=== PATIENT | female | born 1940 | race Caucasian/White ===

== ENCOUNTER → 2017-08-24 | Outpatient (CLI) | payer OTHER, MEDICAID | LOC: BHFA 13:30 | PROVIDERS: ATTEND Internal Medicine Cardiovascular Disease | DX: I77.9 Disorder of arteries and arterioles, unspecified (principal); I50.32 Chronic diastolic (congestive) heart failure; I73.9 Peripheral vascular disease, unspecified; F41.9 Anxiety disorder, unspecified ==

== ENCOUNTER → 2017-09-11 | Outpatient (CLI) | payer OTHER, MEDICAID | LOC: BHFA 13:30 | PROVIDERS: ATTEND Internal Medicine Cardiovascular Disease | DX: I25.10 Atherosclerotic heart disease of native coronary artery without angina pectoris (principal) | CPT/HCPCS: 78452; 93017; A9500; J2785 ==

== ENCOUNTER 2017-11-06 08:31 | Day surgery (SDC) | payer OTHER, MEDICAID ==
[2017-11-06] MEDS ORDERED: TEMAZEPAM 15 MG CAP PO PRN (08:42)
[2017-11-06] MEDS ORDERED: ACETAMINOPHEN 325 MG TAB PO PRN (08:42)
[2017-11-06] MEDS ORDERED: NITROGLYCERIN 0.4 MG BTL SL PRN (08:42)
[2017-11-06] MEDS ORDERED: NS 1,000 ML IV SCH (08:42)
[2017-11-06] MEDS ORDERED: diphenhydrAMINE 25 MG CAP PO ONE (08:42)
[2017-11-06] MEDS ORDERED: ASPIRIN EC 325 MG TAB PO ONE (08:42)
[2017-11-06] MEDS ORDERED: DIAZEPAM 5 MG TAB PO ONE (08:42)
[2017-11-06] MEDS ORDERED: FAMOTIDINE 20 MG TAB PO ONE (08:42)
[2017-11-06 09:33] LABS: PLATELET COUNT 382 10^3/uL (150-400)
[2017-11-06 09:39] LABS: INR 0.97 (0.83-1.16); PROTIME(PATIENT) 13.1 SEC (12.0-15.0)
--- NOTE | 2017-11-06 10:09 | CPEKG ---
Test Reason : OPEN Blood Pressure : / mmHG Vent. Rate : 060 BPM Atrial Rate : 060 BPM P-R Int : 163 ms QRS Dur : 081 ms QT Int : 441 ms P-R-T Axes : 054 021 094 degrees QTc Int : 441 ms Sinus rhythm Borderline T wave abnormalities Confirmed by Geovanni Rodriguez ([id number]) on 11/06/2017 10:08:22 AM Referred By: Confirmed By:Geovanni Rodriguez
[2017-11-06 10:29] VITALS: BP 140/62
--- NOTE | 2017-11-06 10:59 | PDPROPOC ---
Sedation Plan of Care Sedation Plan of Care: mental status noted, patient educated of risks, benefits , alternatives, patient can tolerate sedation ASA Classification: ASA 2 Planned drugs: fentanyl, midazolam Mallampati Score: Class 2 Mallampati Reference Image: Patient passed 3-3-2 rule?: Yes
--- NOTE | 2017-11-06 11:00 | PDHPUP ---
History & Physical Update H&P update statement: This history and physical update is based on an assessment of the patient which was completed after admission or registration (within 24 hours), but prior to the surgery/procedure. H&P update: H&P reviewed & patient examined, no change in patient's condition since H&P completed
[2017-11-06] MEDS ORDERED: MIDAZOLAM 2 MG/2 ML VIAL ONE (11:02)
[2017-11-06] MEDS ORDERED: LIDOCAINE 1% 300 MG/30 ML SDV ONE (11:02)
[2017-11-06] MEDS ORDERED: fentaNYL 100 MCG/2 ML INJ ONE (11:02)
[2017-11-06] MEDS ORDERED: IOPAMIDOL (ISOVUE-370) 150 ML BTL IV ONE ×2 (11:03→12:29)
--- NOTE | 2017-11-06 11:27 | PDANEPAE ---
ANE History of Present Illness cath l&r and carotid angiography ANE Past Medical History - Cardiovascular History Hx Hypertension: Yes Hx Arrhythmias: Yes Hx Chest Pain: No Hx Coronary Artery / Peripheral Vascular Disease: Yes Hx CHF / Valvular Disease: Yes Hx Palpitations: Yes Cardiovascular History Comment: heart stents; - Pulmonary History Hx COPD: No Hx Asthma/Reactive Airway Disease: No Hx Recent Upper Respiratory Infection: Yes Hx Oxygen in Use at Home: No Hx Sleep Apnea: No Sleep Apnea Screening Result - Last Documented: Negative Pulmonary History Comment: current bronchitis; "some kind of unknown lung disease"; SOB - Neurologic History Hx Cerebrovascular Accident: No Hx Seizures: No Hx Dementia: No - Endocrine History Hx Diabetes: No - Renal History Hx Renal Disorders: No - Liver History Hx Hepatic Disorders: No - Neurological & Psychiatric Hx Hx Neurological and Psychiatric Disorders: No - Cancer History Hx Cancer: No - Congenital Disorder History Hx Congenital Disorders: No - GI History Hx Gastrointestinal Disorders: No Gastrointestinal History Comment: hiatal hernia repair; GERD; - Other Health History Other Health History: Virte[place]/dizzy; pain in B calf and upper legs with any walking; Upper and lower dentures; unsure but was told as a child may have had polio? and/or typhod fever?;. unknown systemic dry itchy skin condition (red axillary) now on lower back and buttock; - Chronic Pain History Chronic Pain: No - Surgical History Prior Surgeries: exploritory laparotomy; Cadence; total hysterectomy; Left carpel tunnel; occlusive DVT Left arm w/ surgical removal of clot; hiatal hernia repair ;. Cardiac stents x 3; teeth extraction; ANE Review of Systems Review of Systems: - Exercise capacity METS (RN): 2 METS ANE Patient History - Allergies Allergies/Adverse Reactions: codeine Allergy (Verified 10/31/17 12:55) "Upset stomach" oxycodone Allergy (Verified 10/31/17 12:55) Rash - Home Medications Home Medications: Atorvastatin Calcium [Lipitor 20 mg (*)] 20 mg PO DAILY 10/31/17 [Last Taken 11/14 08:00] Clopidogrel Bisulfate [Plavix (*)] 75 mg PO DAILY 10/31/17 [Last Taken 11/06/17 07:00] Furosemide [Lasix 20 MG (*)] 20 mg PO DAILY 10/31/17 [Last Taken 11/04/17 08:00] Lisinopril [Zestril 5 mg (*)] 5 mg PO DAILY 10/31/17 [Last Taken 11/06/17 07:00] Losartan Potassium [Cozaar 50 mg (*)] 50 mg PO BID 10/31/17 [Last Taken 07:00] Metoprolol Tartrate [Lopressor 50 mg (*)] 50 mg PO BID 10/31/17 [Last Taken 12/14 07:00] Multivitamins [Multivitamin (*)] 1 each PO DAILY 10/31/17 [Last Taken 11/05/17 08:00] Potassium Cl [Klor-Con 20 meq (*)] 20 meq PO DAILY 10/31/17 [Last Taken 08:00] - Smoking Hx Smoking Status: Light smoker - Family Anes Hx Family Hx Anesthesia Complications: denies ANE Labs/Vital Signs - Labs Result Diagrams: 11/06/17 09:10 11/06/17 09:10 - Vital Signs Blood Pressure: 140/62 Heart Rate: 58 Respiratory Rate: 16 O2 Sat (%): 95 Height: 150 cm Weight: 44.9 kg ANE Physical Exam - Airway Mallampati Score: Class 2 Mouth exam: dentures - Pulmonary Pulmonary: no respiratory distress - Cardiovascular Cardiovascular: regular rate and rhythym - ASA Status ASA Status: II ANE Anesthesia Plan Anesthesia Plan: GA with mask, MAC
[2017-11-06] MEDS ORDERED: PROPOFOL/EMULSION 500 MG/50 ML BOTTLE IV ONE ×2 (11:30)
[2017-11-06] MEDS ORDERED: PHENYLEPHRINE HCL 100 MCG/ML SYR ONE (12:10)
[2017-11-06] MEDS ORDERED: HYDROCODONE/APAP 5/325 TAB PO PRN (12:38)
[2017-11-06] MEDS ORDERED: ATROPINE SULFATE 1 MG/10 ML SYR IVP PRN (12:38)
[2017-11-06] MEDS ORDERED: ONDANSETRON 4 MG/2 ML VIAL IVP PRN (12:38)
[2017-11-06] MEDS ORDERED: NALOXONE HCL 0.4 MG/ML INJ IVP PRN (12:48)
--- NOTE | 2017-11-06 12:48 | POSTANESTH ---
Post Anesthetic Evaluation Cardiovascular Status: Normal, Stable Respiratory Status: Normal, Stable Level of Consciousness/Mental Status: Can Participate in Eval Pain Control: Adequate, Prn Tx Ordered Nausea/Vomiting Control: Adequate, Prn Tx Ordered Complications Possibly Related to Anesthesia: None Noted
--- NOTE | 2017-11-06 13:12 | CPIP ---
DATE OF PROCEDURE: 11/06/2017 INDICATIONS FOR PROCEDURE: Preoperative clearance for carotid artery stenosis. PROCEDURE: 1. Nonselective left groin sheathogram. 2. Left common femoral vein access with 25 cm sheath. 3. Right heart catheterization with [place]-Rashmi catheter. 4. Bilateral coronary angiography. 5. Left heart catheterization. 6. Left ventriculogram. 7. Abdominal aortogram. Briefly, this is a 77-year-old female with history of severe peripheral arterial disease as well as k nown worsening carotid artery disease. The patient had a stress test as an outpatient which left the question for potential balance ischemia. Given these findings, the patient was consented for right and left heart catheterization in anticipation for eventual carotid endarterectomy. DESCRIPTION OF PROCEDURE: After informed consent was obtained, the patient was brought to [facility]. The patient's right groin was prepped in sterile fashion. Local lidocaine was utilized. Initially, acce ss was obtained in the right common femoral artery. However, the 0.035 wire could not traverse the a jammie of the right common iliac easily. We decided to abort this side and go to the left side of the p atient. Left common femoral artery was utilized with lidocaine both in the left common femoral vein and artery. Artery was accessed with a 6-Guamanian sheath, and angiographic images were obtained which showed very thin but patent iliac and femoral vessels. A 7-Guamanian sheath was placed in the left comm on femoral vein. Again, there appeared to be some type of difficulty passing the wire through the co mmon femoral vein. We upsized the sheath to a 25 cm 7-Guamanian sheath. At this time, a [place]-Rashmi cath eter was then advanced easily. Wedge pressure was measured, mean of 4, A-wave 6, V-wave 5. PA press ure systolic 31, diastolic 13, mean of 20. RV pressure systolic 40, diastolic 0, end of 8. RA press ure mean of 4, A-wave 7, V-wave 7. Cardiac output was measured to be approximately 2.3 by Michael with a 1.68 by index with an AO sat of 97% and a PA sat of 68%. Left coronary artery angiography with a J L4 catheter was then proceeded with. Left coronary artery revealed long left main with mild plaque d isease. Left circumflex artery gave off a marginal one distally and the AV groove circ which were faustino th healthy and free of disease. The LAD was a serpiginous vessel with mild plaque disease, with no h igh-grade stenosis. There was a diagonal artery coming off the proximal portion which was medium to large, which was healthy and free of disease, with only mild plaque disease. After these images were obtained, the JL4 catheter was removed. A JR4 catheter was advanced to the right coronary artery. Images of the right coronary artery revealed normal ostial RCA, mild 20% to 30% disease in the mid RC A. RPD and RPLS appeared to be patent and free of disease. The JR4 catheter was then removed. The pigtail catheter was then advanced to the left ventricle. EDP was 50 mmHg. Left ventriculogram in t he TYLER projection revealed an EF of 65% with no wall motion abnormalities. No pullback gradient betw een the LV and the aorta. The pigtail catheter was then pulled back to the descending aorta. Abdomi nal aortogram was obtained which showed patent distal ascending aorta and patent bilateral iliac, com mon, external, internal iliac arteries. Of note, there was no significant lesion in the right common iliac artery, but there was some [id number] calcification indicating most likely where the wir e was having trouble traversing this area. Of note, the distal right external iliac artery/proximal common femoral artery did have an area of 30% to 40% tubular narrowing. At this time, the pigtail ca theter was removed over the 0.035 wire. The right external iliac artery proximally had an area of wh at appeared to be about approximately 50% disease, and again, the distal external iliac artery proxim al [employer] had approximately 40% tubular disease. The left iliac system and femoral system did not have any high-grade stenosis. At this time, the pigtail catheter was removed over the 0.035 wire. The pa tient tolerated the procedure well with no issues. IMPRESSION: 1. Mild noncritical coronary artery disease bilaterally. 2. Normal pulmonic pressures. 3. Peripheral artery disease, mainly in the form of right distal external iliac artery disease. PLAN: The patient will have carotid angio per Dr. Pizarro. Please refer to Dr. Pizarro's note for further f indings of the carotid disease. /[id number]/MODL
== END 2017-11-06 17:09 | disposition home or self-care (01) ==
LOC: FCATH 08:31
PROVIDERS: ATTEND Internal Medicine Cardiovascular Disease
PROC: B2151ZZ Fluoroscopy of Left Heart using Low Osmolar Contrast (ICD-10-PCS; principal; 2017-11-06)
PROC: B4101ZZ Fluoroscopy of Abdominal Aorta using Low Osmolar Contrast (ICD-10-PCS; principal; 2017-11-06)
PROC: 4A023N8 Measurement of Cardiac Sampling and Pressure, Bilateral, Percutaneous Approach (ICD-10-PCS; principal; 2017-11-06)
PROC: B2111ZZ Fluoroscopy of Multiple Coronary Arteries using Low Osmolar Contrast (ICD-10-PCS; principal; 2017-11-06)
DX: I65.21 Occlusion and stenosis of right carotid artery (principal); I73.9 Peripheral vascular disease, unspecified; I11.0 Hypertensive heart disease with heart failure; I50.32 Chronic diastolic (congestive) heart failure; E78.5 Hyperlipidemia, unspecified; F41.9 Anxiety disorder, unspecified; Z98.890 Other specified postprocedural states
CPT/HCPCS: 75625; 93005; 93460; C1769; J0461; J1644; J2250; J2370; J2704; J3010; Q9967

== ENCOUNTER → 2017-12-04 | Outpatient (CLI) | payer OTHER, MEDICAID | LOC: BHFA 13:00 | PROVIDERS: ATTEND Internal Medicine Cardiovascular Disease | DX: R55 Syncope and collapse (principal); R06.02 Shortness of breath; I77.9 Disorder of arteries and arterioles, unspecified; R53.83 Other fatigue ==